=== PATIENT | male | born 1990 | race Caucasian/White ===

== ENCOUNTER 2025-04-28 03:05 | Emergency (ER) | payer SELFPAY ==
[~2025-04-28] VITALS: Ht 182.9 cm; Wt 95.3 kg
[~2025-04-28 03:05] MED LIST: AUGMENTIN 875 M1 TAB PO; KEFLEX500 MG PO; MOTRIN800 MG PO
[2025-04-28 06:00] VITALS: BP 130/80
[2025-04-28] MEDS ORDERED: MELOXICAM15 MG PO (06:34)
== END 2025-04-28 06:45 | disposition home or self-care (01) ==
LOC: ED 03:05
DX: S40.011A Contusion of right shoulder, initial encounter (principal); S00.83XA Contusion of other part of head, initial encounter; V86.55XA Driver of 3- or 4- wheeled all-terrain vehicle (ATV) injured in nontraffic accident, initial encounter; Y93.89 Activity, other specified; Y92.410 Unspecified street and highway as the place of occurrence of the external cause; Y99.8 Other external cause status